=== PATIENT | female | born 1990 ===

== ENCOUNTER 2025-08-11 11:15 | Inpatient (IN) | payer OTHER ==
[~2025-08-11] VITALS: Ht 162.6 cm; Wt 65.8 kg
[2025-08-11 13:04] VITALS: BP 123/82
[2025-08-18 13:13] LABS: INR 1.11
[2025-08-18] MEDS ORDERED: CHLORHEXIDINE GLUCONATE 120 ML BOTTLE TOP ONE (16:07)
[2025-08-18] MEDS ORDERED: POVIDONE-IODINE 118 ML BOTT TOP ONE (16:07)
[2025-08-18] MEDS ORDERED: CEFAZOLIN SODIUM 1,000 MG VIAL IV ONE (17:30)
[2025-08-18] MEDS ORDERED: BUPIVACAINE HCL 30 ML VIAL IJ ONE (17:45)
[2025-08-18] MEDS ORDERED: SUGAMMADEX SODIUM 200 MG/2 ML VIAL IV ONE (17:47)
[2025-08-18] MEDS ORDERED: RINGERS SOLUTION,LACTATED 1,000 ML IV SCH (19:45)
[2025-08-18] MEDS ORDERED: GABAPENTIN 300 MG CAPSULE PO SCH (19:47)
[2025-08-18] MEDS ORDERED: ACETAMINOPHEN 500 MG GEL..CAP PO SCH (19:47)
[2025-08-18] MEDS ORDERED: KETOROLAC TROMETHAMINE 30 MG VIAL IV SCH (20:00)
[2025-08-18] MEDS ORDERED: KETOROLAC TROMETHAMINE 30 MG VIAL ONE (20:48)
[2025-08-18 22:00] VITALS: BP 91/57
[2025-08-19 00:59] VITALS: BP 107/65
[2025-08-19 04:48] VITALS: BP 100/64
[2025-08-19 06:49] LABS: BASO % 0.5 % (0.1-1.2); EOS # 0.39 (0.04-0.54); EOS % 5.1 % (0.7-7.0); LYMPH # 2.06 (1.18-3.74); LYMPH % 26.9 % (19.3-53.1); MEAN PLATELET VOLUME 11.20 fl (9.4-12.4); MONO # 0.53 (0.24-0.82); MONO % 6.9 % (4.7-12.5); NEUT # 4.63 (1.56-6.13); NEUT % 60.3 % (34.0-71.1); RED CELL DISTRIBUTION WIDTH 12.6 % (11.6-14.4)
[2025-08-19 08:27] VITALS: BP 91/55
== END 2025-08-19 09:23 | disposition home or self-care (01) | DRG 742 ==
LOC: O/R 08-18 11:00 → SURH 08-18 11:15 → OB/GYN 08-18 16:20
PROVIDERS: ADMIT Student in an Organized Health Care Education/Training Program; ATTEND Student in an Organized Health Care Education/Training Program
PROC: 0DBU4ZZ Excision of Omentum, Percutaneous Endoscopic Approach (ICD-10-PCS; 2025-08-18)
PROC: 0UBF4ZZ Excision of Cul-de-sac, Percutaneous Endoscopic Approach (ICD-10-PCS; 2025-08-18)
PROC: 0UPD4HZ Removal of Contraceptive Device from Uterus and Cervix, Percutaneous Endoscopic Approach (ICD-10-PCS; principal; 2025-08-18 15:00)
DX: T83.39XA Other mechanical complication of intrauterine contraceptive device, initial encounter (principal); T83.89XA Other specified complication of genitourinary prosthetic devices, implants and grafts, initial encounter; N94.4 Primary dysmenorrhea; N80.9 Endometriosis, unspecified; Y65.8 Other specified misadventures during surgical and medical care